=== PATIENT | male | born 1985 | race Caucasian/White ===

== ENCOUNTER 2024-07-18 14:23 | Emergency (ER) | payer OTHER, SELFPAY ==
[2024-07-18] MEDS ORDERED: Morphine 4 MG/ML VIAL ONE (14:35)
[2024-07-18] MEDS ORDERED: Boostrix 0.5 ML (Tdap) VIAL (>/=7 yrs of age) ONE (14:35)
[2024-07-18] MEDS ORDERED: Ondansetron PF 4 MG/2 ML Vial ONE (14:35)
[2024-07-18 14:37] LABS: #Basophils 0.1 thou/uL (0.0-0.2); #Eosinphils 0.1 thou/uL (0.0-0.7); #Lymphocytes 1.7 thou/uL (1.20-3.40); #Monocytes 0.3 thou/uL (0.11-0.59); #Neutrophils 3.6 thou/uL (1.40-6.50); %Basophils 1.1 % (0.0-1.0); %Eosinophils 1.1 % (0.0-10.0); %Monocytes 5.3 % (0.0-10.0); %Neutrophils 62.5 % (42.0-75.0); Hematocrit 39.5 % (42.0-52.0); Hemoglobin 13.4 g/dL (14.0-18.0); Mean Corpuscular HGB CONC 33.9 g/dL (32.0-36.0); Mean Corpuscular Hemoglobin 30.8 pg (27.0-31.0); Mean Corpuscular Volume 90.8 fl (78.0-98.0); Mean Platelet Volume 6.3 fL (7.4-10.4); Platelet Count 172 10x3/uL (130-400); Red Blood Cell (RBC) Count 4.35 mill/uL (4.70-6.10); White Blood Cell (WBC) Count 5.8 10x3/uL (4.8-10.8)
[2024-07-18 14:46] LABS: Prothrombin Time 13.4 sec (12.0-14.7)
[2024-07-18 14:48] LABS: PTT 25.2 sec (22.9-36.1)
[2024-07-18 14:55] LABS: ALT (SGPT) 160 U/L (8-55); AST (SGOT) 149 U/L (5-34); Albumin 3.9 g/dL (3.5-5.0); Alcohol 190.9 mg/dL (Less than 10); Alkaline Phosphatase 101 U/L (40-110); Anion Gap 13 mmol/L (10-20); BUN (Urea Nitrogen) 11 mg/dL (8.9-20.6); Bilirubin, Total 0.3 mg/dL (0.2-1.2); Calc. Creatinine Clearance 0 mL/min (70-130); Calcium 9.1 mg/dL (7.8-10.44); Carbon Dioxide 25 mmol/L (22-29); Chloride 106 mmol/L (98-107); Estimated GFR 92; Globulin 4.2 g/dL (2.4-3.5); Glucose 90 mg/dL (70-105); Potassium 4.4 mmol/L (3.5-5.1); Protein, Total 8.1 g/dL (6.0-8.3); Sodium 140 mmol/L (136-145)
== END 2024-07-18 16:10 | disposition home or self-care (01) ==
LOC: BURERS 14:23
DX: S06.0X1A Concussion with loss of consciousness of 30 minutes or less, initial encounter (principal); S42.002A Fracture of unspecified part of left clavicle, initial encounter for closed fracture; S00.83XA Contusion of other part of head, initial encounter; S40.212A Abrasion of left shoulder, initial encounter; S00.412A Abrasion of left ear, initial encounter; I10 Essential (primary) hypertension; F17.210 Nicotine dependence, cigarettes, uncomplicated; V86.56XA Driver of dirt bike or motor/cross bike injured in nontraffic accident, initial encounter
CPT/HCPCS: 70450; 70486; 71045; 72125; 80053; 80307; 85025; 85610; 85730; 90471; 90715; 96374; 96375; J2272; J2405